=== PATIENT | male | born 1995 ===

== ENCOUNTER 2021-10-09 14:51 | Inpatient (IN) ==
[2021-10-09 17:05] LABS: Acetaminophen < 15 mcg/mL; Alcohol, S < 13 mg/dL (<13); Salicylate < 2.50 mg/dL (<30)
[2021-10-09 17:16] LABS: ABS Lymphocytes 0.9 10^3/ul (1.0-4.8); ABS Monocytes 0.2 10^3/ul (0-0.8); ABS Neutrophils 3.5 10^3/ul (1.5-7.7); Eosinophil % 0.6 %; Hematocrit 43 % (42-52); Hemoglobin 14.4 g/dL (14.0-18.0); Lymphocyte % 18.6 %; Mean Corpuscular HGB Conc 34 g/dL (31-36); Mean Corpuscular Hemoglobin 33 pg (27-31); Mean Corpuscular Volume 98 fL (80-94); Mean Platelet Volume 7.7 fL (7.4-10.4); Nucleated Red Blood Cells % 0.1; Platelet Count 236 10^3/uL (150-450); Red Blood Count 4.33 10^6 /uL (4.18-5.48); Red Cell Distribution Width 13 % (10-15); White Blood Count 4.6 10^3/uL (3.5-10.8)
[2021-10-09 17:18] LABS: TSH Ultra Thyroid Stim Horm 1.24 mcIU/mL (0.34-5.60)
[2021-10-09 17:29] LABS: ALT 12 U/L (7-52); AST 14 U/L (13-39); Albumin/Globulin Ratio 1.7 (1-3); Alkaline Phosphatase 71 U/L (35-149); Anion Gap 8 mmol/L (2-11); Blood Urea Nitrogen 10 mg/dL (6-24); CO2 Carbon Dioxide 28 mmol/L (22-32); Chloride 105 mmol/L (101-111); Globulin 2.9 g/dL (2-4); Glucose 81 mg/dL (70-100); Potassium 3.6 mmol/L (3.5-5.0); Sodium 141 mmol/L (135-145); Total Protein 7.9 g/dL (6.4-8.9); eGFR CKD-EPI 130.8 (>60)
[2021-10-10] MEDS ORDERED: Al Hydrox/Mg Hydrox/Simet LIQ 30 ML UDC PO PRN (03:36)
[2021-10-10] MEDS: Vitamin THERAPEUTIC TAB PO SCH (09:30)
[2021-10-10 11:21] LABS: C Reactive Protein 1.49 mg/L (<8.01)
[2021-10-10 11:48] LABS: Vitamin B12 1233 pg/mL (180-914)
[2021-10-10 11:51] LABS: Vitamin D Total 25(OH) 34.2 ng/mL (20-50)
[2021-10-10] MEDS: TESTOSTERONE GEL 25 MG (NF) IN 2.5 GM SIZE PACKET TOPICAL SCH (15:43)
[2021-10-10] MEDS: PTO:Mirabegron 25 mg ER TAB (NF) PO SCH (16:28)
[2021-10-11] MEDS: TESTOSTERONE GEL 25 MG (NF) IN 2.5 GM SIZE PACKET TOPICAL SCH (08:49)
[2021-10-11] MEDS: PTO:Mirabegron 25 mg ER TAB (NF) PO SCH (08:51)
[2021-10-11] MEDS: Vitamin THERAPEUTIC TAB PO SCH (08:52)
[2021-10-11] MEDS ORDERED: NF:Mirabegron 25 mg ER TAB (NF) PO SCH (09:00)
[2021-10-12 07:41] LABS: HDL Cholesterol 53.5 mg/dL
[2021-10-12] MEDS: TESTOSTERONE GEL 25 MG (NF) IN 2.5 GM SIZE PACKET TOPICAL SCH (08:47)
[2021-10-12] MEDS: PTO:Mirabegron 25 mg ER TAB (NF) PO SCH (08:47)
[2021-10-12] MEDS: Vitamin THERAPEUTIC TAB PO SCH (08:48)
[2021-10-13] MEDS: TESTOSTERONE GEL 25 MG (NF) IN 2.5 GM SIZE PACKET TOPICAL SCH (08:19)
[2021-10-13] MEDS: Vitamin THERAPEUTIC TAB PO SCH (08:19)
[2021-10-13] MEDS: PTO:Mirabegron 25 mg ER TAB (NF) PO SCH (08:19)
[2021-10-13 09:27] VITALS: BP 101/82
== END 2021-10-13 12:24 | disposition home or self-care (01) | DRG 880 ==
LOC: ED 14:51 → BSU 10-10 00:19
PROVIDERS: ADMIT Psychiatry & Neurology Psychiatry; ATTEND Psychiatry & Neurology Psychiatry